=== PATIENT | female | born 1965 | race Two or more races ===

== ENCOUNTER 2016-07-26 06:01 | Day surgery (SDC) | payer OTHER ==
[~2016-07-26] VITALS: Ht 154.9 cm; Wt 69.0 kg
[2016-07-26 06:57] VITALS: Ht 154.9 cm; Wt 69.0 kg
[2016-07-26 07:51] VITALS: BP 124/60; PULSE 60; RESP 18
[2016-07-26] MEDS ORDERED: MIDAZOLAM 1 MG/ML 2 ML INJ ONE (08:40)
[2016-07-26] MEDS ORDERED: FENTAnyl 50 MCG/ML VIAL ONE (08:40)
[2016-07-26 09:09] VITALS: BP 110/63; PULSE 60; RESP 20
--- NOTE | 2016-07-26 10:39 | GILP ---
DATE OF PROCEDURE: 07/26/2016 NAME OF PROCEDURE: Colonoscopy and biopsy. SURGEON: Kevon Jade MD PREOPERATIVE DIAGNOSIS: Screening colonoscopy. POSTOPERATIVE DIAGNOSES: 1. Colonoscopy all the way to the cecum. 2. Two small colon polyps were removed using the biopsy forceps. 3. Internal hemorrhoids. INDICATION FOR THE PROCEDURE: Ms. Meg Jacques is a 50-year-old female patient who was scheduled for screening colonoscopy. The procedure and possible complications were well explained to the patient. She understood and con sented to the procedure. DESCRIPTION OF PROCEDURE: Under the influence of fentanyl and Versed, the colonoscope was carefully introduced in the rectum and under direct vision, it was advanced all the way to the cecum. FINDINGS: The patient had 2 small colon polyps and they were removed using the biopsy forceps. She was noted to have diverticulosis of the colon and internal hemorrhoids. She tolerated the procedure very well and there was no complication from the procedure. At the end of the procedure, she was awake with stable vital signs and she was discharged home to the care of h er family. IMPRESSION: 1. Colonoscopy all the way to the cecum. 2. Two small colon polyps were removed using the biopsy forceps. 3. Internal hemorrhoids. 4. Diverticulosis of the colon. PLAN: 1. Await histopathology report. 2. Followup colonoscopy in 5 years. Dictated By: KEVON RED/HANK Conf#: [id number] DID#: [id number] CC: KEVON JADE MD;*EndCC*
== END 2016-07-26 12:01 | disposition home or self-care (01) ==
LOC: GIL 06:01
PROVIDERS: ATTEND Internal Medicine Gastroenterology
DX: Z12.11 Encounter for screening for malignant neoplasm of colon (principal); K63.5 Polyp of colon; K64.8 Other hemorrhoids
CPT/HCPCS: 88305; J2250; J3010